=== PATIENT | male | born 1980 | race American Indian/Alaskan Native ===

== ENCOUNTER 2020-10-26 12:02 | Emergency (ER) | payer MEDICAID ==
--- NOTE | 2020-10-26 12:53 | XRay Report ---
CHEST PA AND LATERAL VIEWS INDICATION: chest pain. COMPARISON: None. FINDINGS: Support devices: None. Heart: Within normal limits. Lungs/Pleura: Right basilar opacities are predominantly reticular. Left lung is clear. No pleural abn ormality. IMPRESSION: 1. Right basilar opacities may be due to lower airways disease. Signer Name: Alfredito Mercado MD Signed: 10/26/2020 12:48 PM Workstation Name: [id number]
[2020-10-26 14:05] LABS: Basophils # (Auto) 0.1 K/mm3 (0.0-0.1); Eosinophils # (Auto) 0.1 K/mm3 (0.0-0.4); Eosinophils % (Auto) 1.7 % (0.0-4.3); Hematocrit 42.6 % (35.5-45.6); Hemoglobin 14.1 gm/dl (11.8-15.2); Lymphocytes % (Auto) 36.4 % (13.4-35.0); Mean Corpuscular HGB Conc 33 % (32-34); Mean Corpuscular Volume 81 fl (84-94); Monocytes # (Auto) 0.5 K/mm3 (0.0-0.8); Platelet Count 170 K/mm3 (140-440); Red Blood Count 5.24 M/mm3 (3.65-5.03); Red Cell Distribution Width 14.7 % (13.2-15.2)
[2020-10-26 14:26] LABS: Alanine Aminotransferase 24 units/L (7-56); Albumin 4.3 g/dL (3.9-5); BUN/Creatinine Ratio 11; Blood Urea Nitrogen 11 mg/dL (9-20); Calcium 9.4 mg/dL (8.4-10.2); Hemolysis Index 4
[2020-10-26] MEDS ORDERED: ACETAMINOPHEN 500 MG TAB PO STA (17:14)
[2020-10-26] MEDS ORDERED: IBUPROFEN 800 MG TAB PO STA (17:14)
--- NOTE | 2020-10-26 17:52 | Emergency Department Report ---
ED Chest Pain HPI - General Chief Complaint: Dyspnea/Respdistress Stated Complaint: CHEST PAIN Time Seen by Provider: 10/26/20 17:14 Source: patient Mode of arrival: Ambulatory Limitations: No Limitations - History of Present Illness Initial Comments: 39-year-old -Serbian male patient presents with complaints of left-sided chest pain intermittently x1 week. He describes the pain as a pinching type sensation and rates it as a 6/10 in severity. Patient denies any shortness of breath, cough/hemoptysis, abdominal pain, fever/chills/sweats, or loss of taste or smell. Pain worsens with movement and radiates down his left arm. He denies any past cardiac history or family heart history. He also denies any recent long travel/surgeries or history of DVT/PE/cancer. Patient is a non-smoker. Past medical history includes bipolar disorder for which he takes Zyprexa - Related Data Previous Rx's Medication Instructions Recorded Last Taken Type Ibuprofen [Motrin] 800 mg PO Q8HR PRN #15 tablet 12/08/15 Unknown Rx Penicillin Vk [Veetids TAB] 250 mg PO QID #28 tablet 12/08/15 Unknown Rx Butalb/Acetaminophen/Caffeine 1 cap PO Q8HR PRN #12 cap 09/15/19 Unknown Rx [Fioricet 50-300-40 mg CAP] Naproxen 500 mg PO BID PRN #20 tablet 10/26/20 Unknown Rx methOCARBAMOL [Robaxin TAB] 500 mg PO TID PRN #15 tablet 10/26/20 Unknown Rx Allergies Allergy/AdvReac Type Severity Reaction Status Date / Time No Known Allergies Allergy Verified 07/06/15 09:52 Heart Score - HEART Score History: Slightly suspicious EKG: Normal Age: < 45 Risk factors: No known risk factors Troponin: < normal limit HEART Score: 0 - EKG Read Time Time EKG Completed: 13:00 EKG Read Time: 13:00 - Critical Actions Critical Actions: 0-3 pts:0.9-1.7%risk of adverse cardiac event.Candidate for discharge ED Review of Systems ROS: Stated complaint: CHEST PAIN Other details as noted in HPI Constitutional: denies: chills, diaphoresis, fever, malaise Respiratory: denies: cough, shortness of breath Cardiovascular: chest pain. 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 - Surgical History Past Surgical History?: No - Social History Smoking Status: Never Smoker Substance Use Type: Alcohol - Medications Home Medications: Home Medications Medication Instructions Recorded Confirmed Last Taken Type Ibuprofen [Motrin] 800 mg PO Q8HR PRN #15 tablet 12/08/15 Unknown Rx Penicillin Vk [Veetids TAB] 250 mg PO QID #28 tablet 12/08/15 Unknown Rx Butalb/Acetaminophen/Caffeine 1 cap PO Q8HR PRN #12 cap 09/15/19 Unknown Rx [Fioricet 50-300-40 mg CAP] Naproxen 500 mg PO BID PRN #20 tablet 10/26/20 Unknown Rx methOCARBAMOL [Robaxin TAB] 500 mg PO TID PRN #15 tablet 10/26/20 Unknown Rx ED Physical Exam - General Limitations: No Limitations General appearance: alert, in no apparent distress - Head Head exam: Present: atraumatic, normocephalic - Eye Eye exam: Present: normal appearance. Absent: scleral icterus - Neck Neck exam: Present: normal inspection - Respiratory Respiratory exam: Present: normal lung sounds bilaterally, chest wall tenderness (Tenderness to palpation noted over the left anterior chest wall without obvious deformity or bruising noted). Absent: respiratory distress - Cardiovascular Cardiovascular Exam: Present: regular rate, normal rhythm. Absent: systolic murmur, diastolic murmur, rubs, gallop - GI/Abdominal GI/Abdominal exam: Present: soft. Absent: tenderness - Expanded Upper Extremity Exam Left General: Present: normal inspection - Back Exam Back exam: Present: full ROM - Neurological Exam Neurological exam: Present: alert, oriented X3, normal gait - Psychiatric Psychiatric exam: Present: normal affect, normal mood - Skin Skin exam: Present: warm, dry, intact, normal color. Absent: rash ED Course Vital Signs 10/26/20 18:24 Temperature 98.3 F Pulse Rate 72 Respiratory 16 Rate Blood Pressure 125/86 [Right] O2 Sat by Pulse 98 Oximetry ED Medical Decision Making - Lab Data Result diagrams: 10/26/20 13:39 10/26/20 13:39 Lab Results 10/26/20 10/26/20 10/26/20 Range/Units 13:39 13:39 17:34 WBC 5.6 (4.5-11.0) K/mm3 RBC 5.24 H (3.65-5.03) M/mm3 Hgb 14.1 (11.8-15.2) gm/dl Hct 42.6 (35.5-45.6) % MCV 81 L (84-94) fl MCH 27 L (28-32) pg MCHC 33 (32-34) % RDW 14.7 (13.2-15.2) % Plt Count 170 (140-440) K/mm3 Lymph % (Auto) 36.4 H (13.4-35.0) % [place] % (Auto) 8.0 H (0.0-7.3) % Eos % (Auto) 1.7 (0.0-4.3) % Baso % (Auto) 1.0 (0.0-1.8) % Lymph # (Auto) 2.0 (1.2-5.4) K/mm3 [place] # (Auto) 0.5 (0.0-0.8) K/mm3 Eos # (Auto) 0.1 (0.0-0.4) K/mm3 Baso # (Auto) 0.1 (0.0-0.1) K/mm3 Seg Neutrophils % 52.9 (40.0-70.0) % Seg Neutrophils # 3.0 (1.8-7.7) K/mm3 Sodium 137 (137-145) mmol/L Potassium 4.2 (3.6-5.0) mmol/L Chloride 102.3 (98-107) mmol/L Carbon Dioxide 24 (22-30) mmol/L Anion Gap 15 mmol/L BUN 11 (9-20) mg/dL Creatinine 1.0 (0.8-1.3) mg/dL Estimated GFR > 60 ml/min BUN/Creatinine Ratio 11 % Glucose 88 (75-100) mg/dL Calcium 9.4 (8.4-10.2) mg/dL Total Bilirubin 0.60 (0.1-1.2) mg/dL AST 19 (5-40) units/L ALT 24 (7-56) units/L Alkaline Phosphatase 99 (35-129) units/L Troponin T < 0.010 < 0.010 (0.00-0.029) ng/mL NT-Pro-B Natriuret Pep 17.64 (0-450) pg/mL Total Protein 7.9 (6.3-8.2) g/dL Albumin 4.3 (3.9-5) g/dL Albumin/Globulin Ratio 1.2 % - EKG Data EKG shows normal: sinus rhythm Rate: normal - Radiology Data Radiology results: report reviewed CHEST PA AND LATERAL VIEWS INDICATION: chest pain. COMPARISON: None. FINDINGS: Support devices: None. Heart: Within normal limits. Lungs/Pleura: Right basilar opacities are predominantly reticular. Left lung is clear. No pleural abnormality. IMPRESSION: 1. Right basilar opacities may be due to lower airways disease. - Medical Decision Making 39-year-old -Serbian male patient presents with complaints of left-sided chest pain intermittently x1 week. He describes the pain as a pinching type sensation and rates it as a 6/10 in severity. Patient denies any shortness of breath, cough/hemoptysis, abdominal pain, fever/chills/sweats, or loss of taste or smell. Pain worsens with movement and radiates down his left arm. He denies any past cardiac history or family heart history. He also denies any recent long travel/surgeries or history of DVT/PE/cancer. Patient is a non-smoker. Past medical history includes bipolar disorder for which he takes Zyprexa No significant abnormalities noted on CBC, CMP, or initial and repeat troponins. Chest pain is palpable. Heart score = 0. X-ray shows possible mild right lower lung infection. Patient denies cough or shortness of breath. Suspect symptoms are musculoskeletal in origin, however given chest x-ray findings will cover patient for possible developing pneumonia with doxycycline. Discussed lab findings and need for follow-up with PCP in 3 days with patient who verbalizes understanding. He is well-appearing, his vitals are normal, he is stable for discharge home. Strict return precautions were discussed in detail with patient who verbalizes understanding. Critical care attestation.: If time is entered above; I have spent that time in minutes in the direct care of this critically ill patient, excluding procedure time. ED Disposition Clinical Impression: Left-sided chest pain Disposition: DC- TO HOME OR SELFCARE Is pt being admited?: No Condition: Stable Instructions: Nonspecific Chest Pain, Adult, Costochondritis Prescriptions: Naproxen 500 mg PO BID PRN #20 tablet PRN Reason: pain methOCARBAMOL [Robaxin TAB] 500 mg PO TID PRN #15 tablet PRN Reason: muscle spasm/tightness Referrals: [facility] [Provider Group] - 3-5 Days KRISS HARDIN MD [Staff Physician] - 3-5 Days Forms: Work/School Release Form(ED)
[2020-10-26 18:25] VITALS: BP 125/86
--- NOTE | 2020-10-28 10:38 | Electrocardiograph Report ---
[facility] Test Date: 2020-10-26 Test Time: 12:18:19 Pat Name: VANESSA MEDINA Department: Room: Gender: M Assistant Account Executive: WILLIAM : 1980 Requested By: JUNAID ANDINO Order Number: [id number] Reading MD: Kris Kerr Measurements Intervals [place] Rate: 81 P: 54 CA: 133 QRS: 54 QRSD: 83 T: 31 QT: 355 QTc: 412 Interpretive Statements Sinus rhythm No previous ECG available for comparison Electronically Signed On 10-28-2020 10:37:30 EDT by Kris Kerr
== END 2020-10-26 18:28 | disposition home or self-care (01) ==
LOC: ED 12:02
DX: R07.9 Chest pain, unspecified (principal); F31.9 Bipolar disorder, unspecified; N28.89 Other specified disorders of kidney and ureter
CPT/HCPCS: 36415; 71046; 80053; 83880; 84484; 85025; 93005; 99284

== ENCOUNTER 2021-11-12 13:48 | Emergency (ER) | payer MEDICAID ==
[2021-11-12 15:11] VITALS: BP 144/78
[2021-11-12] MEDS ORDERED: ONDANSETRON 4 MG ODT TAB PO ONE (17:46)
[2021-11-12] MEDS ORDERED: HYDROcodone/ACETAMINOPHEN 5-325 MG TAB PO ONE (17:46)
[2021-11-12] MEDS ORDERED: IBUPROFEN 800 MG TAB PO ONE (17:46)
--- NOTE | 2021-11-12 18:15 | Emergency Department Report ---
ED Chest Pain HPI - General Chief Complaint: Chest Pain Stated Complaint: CHEST PAIN/HEADACHE Time Seen by Provider: 11/12/21 16:55 Source: patient Mode of arrival: Ambulatory Limitations: No Limitations - History of Present Illness Initial Comments: 40-year-old male with a history of bipolar disorder, depression, presents to the emergency department with chest pain. Patient reports while he was at work last night began having pain in his chest with headache and right eye pain. States he mildfully resolved, but his reports that while he was asleep he woke up like "he was startled and was having shortness of breath". Pain does not radiate to his upper extremities or neck or head, no nausea, he denies cough cold congestion, he denies history of PE or DVTs, he denies nausea or vomiting, headache is frontal, no weakness, no new vision changes, he denies drug use. He does report history of anxiety but does not take any medications. No tobacco no alcohol use no drug use. No family history of sudden cardiac at a young age. No lower extremity swelling, no orthopnea, no activity intolerance MD Complaint: chest pain -: Gradual, days(s) Onset: during exertion Pain Location: substernal Pain Radiation: none Severity scale (0 -10): 5 Quality: aching, sharp Consistency: intermittent Improves With: nothing Worsens With: inspiration, palpation re: denies: nausea, vomting, diaphoresis, dyspnea, sense of impending doom Other Symptoms: denies: cough, fever, rash, acid taste in mouth, leg swelling, palpitations, burping, other Treatments Prior to Arrival: none - Related Data Previous Rx's Medication Instructions Recorded Last Taken Type Ibuprofen [Motrin] 800 mg PO Q8HR PRN #15 tablet 12/08/15 Unknown Rx Penicillin Vk [Veetids TAB] 250 mg PO QID #28 tablet 12/08/15 Unknown Rx Butalb/Acetaminophen/Caffeine 1 cap PO Q8HR PRN #12 cap 09/15/19 Unknown Rx [Fioricet 50-300-40 mg CAP] Naproxen 500 mg PO BID PRN #20 tablet 11/12/21 Unknown Rx methOCARBAMOL [Robaxin TAB] 500 mg PO TID PRN #15 tablet 11/12/21 Unknown Rx Allergies Allergy/AdvReac Type Severity Reaction Status Date / Time No Known Allergies Allergy Verified 11/12/21 15:12 Heart Score - HEART Score History: Slightly suspicious EKG: Normal Age: < 45 Risk factors: No known risk factors Troponin: < normal limit HEART Score: 0 - EKG Read Time Time EKG Completed: 20:00 EKG Read Time: 20:05 ED Review of Systems ROS: Stated complaint: CHEST PAIN/HEADACHE Other details as noted in HPI Constitutional: no symptoms reported Eyes: as per HPI ENT: as per HPI Respiratory: denies: cough, orthopnea Cardiovascular: chest pain, paroxysmal nocturnal dyspnea. denies: palpitations, dyspnea on exertion, orthopnea, edema, syncope Endocrine: denies: intolerance to cold Gastrointestinal: denies: abdominal pain, nausea, vomiting Musculoskeletal: myalgia. denies: back pain, joint swelling, arthralgia Skin: denies: rash, lesions Neurological: headache. denies: weakness, numbness, paresthesias, confusion, abnormal gait, vertigo Psychiatric: anxiety, depression. 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 - Social History Smoking Status: Never Smoker Substance Use Type: Alcohol - Medications Home Medications: Home Medications Medication Instructions Recorded Confirmed Last Taken Type Ibuprofen [Motrin] 800 mg PO Q8HR PRN #15 tablet 12/08/15 Unknown Rx Penicillin Vk [Veetids TAB] 250 mg PO QID #28 tablet 12/08/15 Unknown Rx Butalb/Acetaminophen/Caffeine 1 cap PO Q8HR PRN #12 cap 09/15/19 Unknown Rx [Fioricet 50-300-40 mg CAP] Naproxen 500 mg PO BID PRN #20 tablet 11/12/21 Unknown Rx methOCARBAMOL [Robaxin TAB] 500 mg PO TID PRN #15 tablet 11/12/21 Unknown Rx ED Physical Exam - General Limitations: No Limitations General appearance: alert, in no apparent distress - Head Head exam: Present: atraumatic - Eye Eye exam: Present: normal appearance - ENT ENT exam: Present: normal exam, normal orophraynx - Neck Neck exam: Present: normal inspection. Absent: tenderness, lymphadenopathy - Respiratory Respiratory exam: Present: normal lung sounds bilaterally, respiratory distress, chest wall tenderness - Cardiovascular Cardiovascular Exam: Present: regular rate, normal rhythm (Reproducible chest pain) - GI/Abdominal GI/Abdominal exam: Present: soft. Absent: distended, tenderness - Extremities Exam Extremities exam: Present: normal inspection, full ROM, normal capillary refill - Back Exam Back exam: Present: normal inspection, full ROM. Absent: tenderness, muscle spasm - Neurological Exam Neurological exam: Present: alert, oriented X3, CN II-XII intact, normal gait, reflexes normal. Absent: motor sensory deficit - Psychiatric Psychiatric exam: Present: normal affect, normal mood ED Course Vital Signs 11/12/21 15:09 Temperature 98 F Pulse Rate 74 Respiratory 18 Rate Blood Pressure 144/78 [Left] O2 Sat by Pulse 100 Oximetry ED Medical Decision Making - EKG Data -: EKG Interpreted by Me EKG shows normal: sinus rhythm, axis, intervals, QRS complexes Rate: normal - EKG Data When compared to previous EKG there are: no significant change (Same) Interpretation: normal EKG 11/12/21 21:15 Normal sinus rhythm at 62, no STEMI - Radiology Data Radiology results: report reviewed Mild patchy basilar air space disease without infiltrates consolidation or ef fusion - Medical Decision Making 40-year-old male with a history of bipolar disorder, depression, presents to the emergency department with chest pain. Patient reports while he was at work last night began having pain in his chest with headache and right eye pain. States he mildfully resolved, but his reports that while he was asleep he woke up like "he was startled and was having shortness of breath". Pain does not radiate to his upper extremities or neck or head, no nausea, he denies cough cold congestion, he denies history of PE or DVTs, he denies nausea or vomiting, headache is frontal, no weakness, no new vision changes, he denies drug use. He does report history of anxiety but does not take any medications. No tobacco no alcohol use no drug use. No family history of sudden cardiac at a young age. No lower extremity swelling, no orthopnea, no activity intolerance Differential diagnosis includes anxiety, pneumonia, bronchitis, pericarditis, bronchitis, pneumothorax, costochondritis, GERD Chest x-rayMild patchy basilar air space disease without infiltrates consolidation or effusion Symptoms are without cough without fever, EKG is nonischemic, troponin is negative, with a heart score of 0. Patient can follow-up outpatient for further testing. Discharged with NSAIDs, referral cardiology for further testing evaluation. Given a few days of work, activity modification with understanding Patient remained stable nontoxic-appearing, afebrile, ambulating steadily without assistance. Gone over ED findings with patient as well as plan for follow-up. Also discussed return precautions with patient, all questions and concerns addressed. Patient is stable to be discharged follow-up outpatient. Audio voice dictation device used, hence the chart might contain some dictation errors, mispronunciations, wrong spelling and wrong verbiage. Critical care attestation.: If time is entered above; I have spent that time in minutes in the direct care of this critically ill patient, excluding procedure time. ED Disposition Clinical Impression: Atypical chest pain Disposition: 01 HOME / SELF CARE / HOMELESS Is pt being admited?: No Does the pt Need Aspirin: No Condition: Stable Instructions: Nonspecific Chest Pain, Adult Prescriptions: Naproxen 500 mg PO BID PRN #20 tablet PRN Reason: pain methOCARBAMOL [Robaxin TAB] 500 mg PO TID PRN #15 tablet PRN Reason: muscle spasm/tightness Referrals: MIGDALIA PORTILLO MD [Primary Care Provider] - 3-5 Days
--- NOTE | 2021-11-12 18:24 | XRay Report ---
CHEST 1 VIEW INDICATION: Shortness of breath. COMPARISON: 10/26/2020 FINDINGS: SUPPORT DEVICES: None. HEART: Within normal limits. LUNGS/PLEURA: Mild patchy left greater than right basilar airspace disease with no dense consolidatio n or effusion. ADDITIONAL FINDINGS: None. IMPRESSION: 1. Lung findings as above. Signer Name: Alfredo Tamayo MD Signed: 11/12/2021 6:20 PM Workstation Name: [id number]
--- NOTE | 2021-11-14 21:43 | Electrocardiograph Report ---
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
== END 2021-11-12 22:04 | disposition home or self-care (01) ==
LOC: ED 13:48
DX: R07.9 Chest pain, unspecified (principal); F31.9 Bipolar disorder, unspecified; Z79.899 Other long term (current) drug therapy
CPT/HCPCS: 36415; 71045; 84484; 93005; 99283; 99284; J3490; Q0162